=== PATIENT | female | born 2005 | race Hispanic/Latino ===

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

== ENCOUNTER 2025-03-21 11:20 | Emergency (ER) | payer MEDICAID, SELFPAY ==
[2025-03-21 11:20] VITALS: BP 148/100; PULSE 83; RESP 14; TEMP 36.2; O2SAT 98; BMI 48.4
--- NOTE | 2025-03-21 11:47 | EX.ED.UPPERE ---
HPI History of Present Illness Chief Complaint: Upper Extremity Injury Narrative Narrative: Chief complaint and HPI: Left shoulder pain. 19-year-old female with past medical history of depression and hypothyroidism presents for evaluation of left shoulder pain. Patient is left-handed. Patient states she was helping her sister move heavy boxes in which she developed pain in her left shoulder. She denies any significant trauma to the shoulder. She denies any numbness or tingling. Denies any neck pain, shortness of breath, chest pain, weakness. Review of systems: See HPI Medications: As listed on the chart Allergies: As listed on the chart PFSH: Per chart Vital signs: As listed on the chart. Reviewed. Physical exam: Gen: A&O x3, NAD Head: Normocephalic, atraumatic Eyes: No sclera icterus, conjunctiva clear, PERRL, EOMI ENT: moist mucous membranes Neck: Trachea midline, No JVD, Nontender full range of motion, CV: RRR, no murmurs, no chest wall TTP Resp: Lungs CTA BL, no w/r/c Musc: Limited active range of motion of the left shoulder secondary to pain-full passive range of motion, clavicle nontender to palpation, patient's tenderness to palpation is in the trapezius distribution and more along the posterior shoulder/upper scapular region-recreates the pain-no obvious signs of trauma, no deformity, no spinal TTP, no bobo step-offs, shoulder is not erythematous or warm, radial pulses +2 bilaterally, good capillary refill Skin: Warm, dry, intact Neuro: Alert, oriented, grossly intact, sensation intact Psych: Cooperative, appropriate mood and affect [facility] History Depression Hypothyroid Home Medications ?Medication ?Instructions ?Recorded ?Last Taken ?Type albuterol sulfate 90 mcg/actuation 1 - 2 puff inhalation Q4H PRN PRN 08/30/22 Unknown Rx aerosol inhaler (Ventolin HFA) Wheezing ##1 naproxen 500 mg tablet 500 mg PO BID #20 tabs 11/04/22 Unknown Rx hydrocodone-acetaminophen 5-325mg 1 tab PO Q6H PRN PRN Pain 3 days 11/07/22 Unknown Rx 5mg-325mg #10 TABLETS cyclobenzaprine 5 mg tablet 5 mg PO TID PRN muscle spasm 3 03/21/25 Unknown Rx days #9 tabs Allergy/AdvReac Type Severity Reaction Status Date / Time lanette padilla (From Allergy Other Verified 03/21/25 11:21 Vaseline) Social History (Updated 03/21/25 @ 12:09 by Sabina Perez) housing: house Smoking Status: Never smoker EXAM Physical Exam Const Vital Signs: 03/21/25 11:20 Temperature 97.1 F L Temperature Source Temporal Pulse Rate 83 Respiratory Rate 14 Blood Pressure 148/100 H Blood Pressure Mean 116 Pulse Ox 98 Oxygen Delivery Method Room Air MDM MDM MDM Narrative Medical decision making narrative: 19-year-old female with past medical history of depression and hypothyroidism presents for evaluation of left shoulder pain. See HPI and physical exam. Differential diagnosis includes but is not limited to myofascial spasm, shoulder strain, suspect less likely fracture or dislocation. IM Toradol and cyclobenzaprine ordered for symptoms. X-ray of the shoulder ordered. X-ray of the right shoulder was personally viewed interpreted by me, no fracture or dislocation. Radiology in agreement. Suspect patient's pain is secondary to myofascial spasm versus shoulder strain. Follow-up with primary care physician. Was given education on RICE therapy. She confirmed understand the plan. Patient stable to discharge home. Impression: 1. Right shoulder pain/strain Discharge Plan Triage Chief Complaint: Upper Extremity Injury ED Provider: Serge Stone Dx/Rx/DC Orders Clinical Impression: Muscle strain of right scapular region Instructions: ED Muscle Strain, Extremity, ED RICE Prescriptions: New cyclobenzaprine 5 mg tablet 5 mg PO TID PRN (Reason: muscle spasm) 3 Days Qty: 9 0RF Discontinued cyclobenzaprine [cyclobenzaprine] 10 mg tablet 10 mg PO TID PRN (Reason: Muscle Spasm) Qty: 20 0RF No Action albuterol sulfate [Ventolin HFA] 90 mcg/actuation HFA aerosol inhaler 1 - 2 puff inhalation Q4H PRN PRN (Reason: Wheezing) Qty: 1 0RF naproxen 500 mg tablet 500 mg PO BID Qty: 20 0RF hydrocodone-acetaminophen 5-325 mg tablet 1 tab PO Q6H PRN PRN (Reason: Pain) 3 Days Qty: 10 0RF Primary Care Provider: Phan Brewer Referrals: Sabina Ansari PORTABLE MACHINE SANDER, PORTABLE MACHINE SANDER-C [Non-Staff] - 3-5 Days Activity Restrictions/Additional Instructions: You received Toradol here in the emergency department, no ibuprofen for 8 hours. Afterwards okay for ibuprofen. Tylenol as needed. Recommend heating pad as well as Icy Hot. Gentle stretching. Muscle relaxers as needed for muscle spasms. Return back to the ED if symptoms change or worsen. Follow-up with your primary care physician. Print Language: Uzbek Disposition Disposition: Home, Self Care
--- NOTE | 2025-03-21 12:00 | RAD_ITS ---
PROCEDURE: SHOULDER MIN 2 VIEWS 03/21/2025 REASON FOR EXAM: PAIN TECHNIQUE: SHOULDER MIN 2 VIEWS COMPARISON: None FINDINGS: Bones: No fracture or suspicious osseous lesion Joints: Joint spaces well-preserved Soft tissues: Unremarkable Other: RAD/Shoulder min 2 Views IMPRESSION: No abnormal findings Reading Location: [id number]
[2025-03-21 13:00] VITALS: BP 148/100; PULSE 83; RESP 14; TEMP 36.2; O2SAT 98
== END 2025-03-21 13:01 | disposition home or self-care (01) ==
PROVIDERS: Emergency Provider Surgery; PCP Family Medicine; Visit Provider Surgery
DX: S46.911A Strain of unspecified muscle, fascia and tendon at shoulder and upper arm level, right arm, initial encounter (principal); X50.0XXA Overexertion from strenuous movement or load, initial encounter
CPT/HCPCS: 73030; 96372; 99282

== ENCOUNTER 2025-05-19 22:08 | Emergency (ER) | payer MEDICAID, SELFPAY ==
--- OUTSIDE RECORDS SUMMARY | 2024-12-24 10:33 | XMS RPT_ITS ---
Author Name Auto Generated Organization OHIP Care Team Providers Care Stacker Attendant Name Role Phone AMEE BREWER Primary Care Unavailable PODLOGARARUNA Attending Unavailable SELF Referring Unavailable AMEE BREWER Attending Unavailable AMEE BREWER Primary Care Unavailable AMEE BREWER Primary Care Unavailable AMEE BREWER Referring Unavailable AMEE BREWER Primary Care Unavailable AMEE BREWER Referring Unavailable PROBLEMS DATE TYPE CONDITION / CODE ATTENDING STATUS [facility] 05/22/2024 Active Bilateral impact ed cerumen / H61.23(ICD-10) PODLOGARARUNA Active [facility] 12/24/2024 Active Hidradenitis suppurativa / L73.2(ICD-10) PODLOGARARUNA Active [facility] 12/24/2024 Active Acute otitis ext marilee of right ear, unspecified type / H60.501(ICD-10) PODLOGARARUNA Active [facility] 05/23/2024 Active Elevated alkalin e phosphatase level / R74.8(ICD-10) NA Active [facility] 05/23/2024 Active Microcytic anemi a / D50.9(ICD-10) NA Active [facility] 05/23/2024 Active Thrombocytosis / D75.839(ICD-10) NA Active [facility] 06/05/2024 Active Elevated TSH / R79.89(ICD-10) NA Active [facility] 05/22/2024 Active Impacted cerumen of left ear / H61.22(ICD-10) AMEE BREWER Active [facility] 05/22/2024 Active Impacted cerumen of right ear / H61.21(ICD-10) AMEE BREWER Active [facility] 05/22/2024 Active Hypothyroidism, unspecified type / E03.9(ICD-10) AMEE BREWER Active [facility] 05/22/2024 Active Anxiety with dep ression / F41.8(ICD-10) AMEE BREWER Active [facility] 05/22/2024 Active Encounter for me dical examination to establish care / Z00.00(ICD-10) AMEE BREWER Active [facility] 05/22/2024 Active Morbid obesity w ith BMI of 45.0-49.9, adult (HCC) / E66.01(ICD-10) AMEE BREWER Active [facility] 05/22/2024 Active Morbid obesity w ith BMI of 45.0-49.9, adult (HCC) / Z68.42(ICD-10) SUSAN BREWERMELISA Active [facility] 05/22/2024 Active Encounter for immunization / Z23(ICD-10) ALVAANU AMEE Active [facility] PROCEDURES No Procedure Records Found RESULTS PROGRESS Observed: 12/24/2024 1:56 PM Status: COMPLETED Source: [facility] HNO ID: [id number] Author: ANITA CUMMINGS LPN Service: ? Author Type: LICENSED NURSE Type: Progress Notes Filed: 12/24/2024 13:57 Note Text: Dermatology referral, todays office note and [facility] at [phone] per patient request. Anita Cummings LPN PROGRESS Observed: 12/24/2024 11:13 AM Status: COMPLETED Source: [facility] HNO ID: [id number] Author: ANITA CUMMINGS LPN Service: ? Author Type: LICENSED NURSE Type: Progress Notes Filed: 12/24/2024 11:18 Note Text: Ambulatory Ear Lavage Pre-treatment: No pre-treatment Treatment: Both ears Equipment and Irrigation solution and Volume used: Single use syringe with single use irrigation tip Water Return flow appearance: Brown Yellow Patient tolerated procedure: yes Tympanic membrane assessment: Tympanic membrane assessed by LIP pre and post procedure PROGRESS Observed: 12/24/2024 10:40 AM Status: COMPLETED Source: [facility] HNO ID: [id number] Author: ARUNA GARCIA APRN.ABSORPTION AND ADSORPTION ENGINEER Service: ? Author Type: Nurse Practitioner Type: Progress Notes Filed: 12/24/2024 11:18 Note Text: 12/24/2024 Patient presents with: Ear Problem: Right ear pain x1 day, got water in last evening Acne: On bilateral breasts SUBJECTIVE: This is a 19 year old that is here today for Above Complaints. Last night started with right ear pain which started after her shower. Melissa is muffled. She reports she has a hx of swimmer's ear. Denies fevers, chills, or drainage. Acne under her breasts she thinks. Reports this has been going on for a while. Has not used anything OTC PAST MEDICAL HISTORY Diagnosis Date Anxiety with depression Cerumen impaction Chronic lower back pain Deliberate self-cutting childhood Elevated alkaline phosphatase level Geographic tongue Hypothyroidism Microcytic anemia Morbid obesity (HCC) Thrombocytosis Vitamin D deficiency ALLERGIES Patient has no known allergies. MEDICATIONS Current Outpatient Medications Medication Sig levothyroxine (SYNTHROID) 25 mcg tablet Take 1 tablet by mouth once daily. Take on empty stomach. For thyroid. cholecalciferol, Vitamin D3, (VITAMIN D3) 1,250 mcg (50,000 unit) cap capsule Take 1 capsule by mouth one time a week. sertraline (ZOLOFT) 50 mg tablet Take 1 tablet by mouth once daily. No current facility-administered medications for this visit. Medications and allergies reviewed by this provider. SOCIAL HISTORY Social History Tobacco Use Smoking status: Never Smokeless tobacco: Never Vaping Use Vaping status: Never Used Substance Use Topics Alcohol use: Never Drug use: Never REVIEW OF SYSTEMS All other reviewed and negative other than HPI. OBJECTIVE: BP 132/86 Pulse 86 Temp 36.2 ?C (97.2 ?F) Resp 18 Wt 121.3 kg (267 lb 6.4 oz) SpO2 98% BMI 47.56 kg/m? . Vital signs reviewed by this provider. APPEARANCE Well appearing, alert, in no acute distress, well-hydrated, well nourished. EARS Positive findings: cerumen bilaterally, amount Moderate. Right ear canal with mild erythema and tenderness with exam. After ear lavage still with moderate impaction SKIN lesions consistent with hidradenitis suppurativa - no surrounding erythema or active drainage Chlamydia Screening () Never done GC (Gonorrhea) Screening (-) due on 05/22/2025 Hepatitis C Screening due on 05/22/2025 HIV Screening due on 05/22/2025 Annual PCP Team Chronic Disease Visit due on 05/22/2025 DTaP,Tdap,Td Vaccine(8 - Td or Tdap) due on 04/27/2028 Hepatitis B Vaccine Completed HPV Vaccine Completed Influenza Vaccine Completed Meningococcal B Vaccine Completed Covid-19 Vaccine Completed ASSESSMENT/PLAN: 1. Bilateral impacted cerumen - ICD9: 380.4, ICD10: H61.23 (primary diagnosis) - recommend using Debrox OTC as instructed on packaging - AMBULATORY EAR LAVAGE/IRRIGATION - follow-up as needed 2. Hidradenitis suppurativa - ICD9: 705.83, ICD10: L73.2 - DOXYCYCLINE HYCLATE 100 MG CAPSULE - CONSULT TO DERMATOLOGY - METFORMIN ER 500 MG TABLET,EXTENDED RELEASE 24 HR 3. Acute otitis externa of right ear, unspecified type - ICD9: 380.10, ICD10: H60.501 - CIPRO HC 0.2 %-1 % EAR DROPS,SUSPENSION - follow-up if fails to improve Aruna Garcia, HYPERION ANALYST.ABSORPTION AND ADSORPTION ENGINEER Prescription instructions reviewed with patient as applicable. Patient advised if symptoms do not improve or if symptoms worsen sooner, to contact their primary care physician. Potential red flag symptoms discussed with the patient. Reviewed appropriate action plan to take if red flag symptoms occur. Patient agreeable to treatment plan. Medical Decision Making: Problems: Low: Acute, uncomplicated illness or injury Moderate: New problem with uncertain prognosis Risk: Moderate: Drug management Medical Decision Making Level: 4 - Moderate CNOV Observed: 12/24/2024 10:40 AM Status: COMPLETED Source: [facility] ANGELICA ONOFRE ([id number]) 3 F Date Time Provider Department 12/24/24 10:40 AM ARUNA GARCIA During your visit today, we recorded the following information about you: Temperature Pulse Respiration Blood pressure 97.2 degrees 86/minute 18/minute 132/86 Weight 121.3 kg Aruna Garcia APRN.CNP 12/24/2024 11:18 AM Signed 12/24/2024 Patient presents with: Ear Problem: Right ear pain x1 day, got water in last evening Acne: On bilateral breasts SUBJECTIVE: This is a 19 year old that is here today for Above Complaints. Last night started with right ear pain which started after her shower. Melissa is muffled. She reports she has a hx of swimmer's ear. Denies fevers, chills, or drainage. Acne under her breasts she thinks. Reports this has been going on for a while. Has not used anything OTC PAST MEDICAL HISTORY Diagnosis Date Anxiety with depression Cerumen impaction Chronic lower back pain Deliberate self-cutting childhood Elevated alkaline phosphatase level Geographic tongue Hypothyroidism Microcytic anemia Morbid obesity (HCC) Thrombocytosis Vitamin D deficiency ALLERGIES Patient has no known allergies. MEDICATIONS Current Outpatient Medications Medication Sig levothyroxine (SYNTHROID) 25 mcg tablet Take 1 tablet by mouth once daily. Take on empty stomach. For thyroid. cholecalciferol, Vitamin D3, (VITAMIN D3) 1,250 mcg (50,000 unit) cap capsule Take 1 capsule by mouth one time a week. sertraline (ZOLOFT) 50 mg tablet Take 1 tablet by mouth once daily. No current facility-administered medications for this visit. Medications and allergies reviewed by this provider. SOCIAL HISTORY Social History Tobacco Use Smoking status: Never Smokeless tobacco: Never Vaping Use Vaping status: Never Used Substance Use Topics Alcohol use: Never Drug use: Never REVIEW OF SYSTEMS All other reviewed and negative other than HPI. OBJECTIVE: BP 132/86 Pulse 86 Temp 36.2 ?C (97.2 ?F) Resp 18 Wt 121.3 kg (267 lb 6.4 oz) SpO2 98% BMI 47.56 kg/m? . Vital signs reviewed by this provider. APPEARANCE Well appearing, alert, in no acute distress, well-hydrated, well nourished. EARS Positive findings: cerumen bilaterally, amount Moderate. Right ear canal with mild erythema and tenderness with exam. After ear lavage still with moderate impaction SKIN lesions consistent with hidradenitis suppurativa - no surrounding erythema or active drainage Chlamydia Screening (18-24) Never done GC (Gonorrhea) Screening (18-24) due on 05/22/2025 Hepatitis C Screening due on 05/22/2025 HIV Screening due on 05/22/2025 Annual PCP Team Chronic Disease Visit due on 05/22/2025 DTaP,Tdap,Td Vaccine(8 - Td or Tdap) due on 04/27/2028 Hepatitis B Vaccine Completed HPV Vaccine Completed Influenza Vaccine Completed Meningococcal B Vaccine Completed Covid-19 Vaccine Completed ASSESSMENT/PLAN: 1. Bilateral impacted cerumen - ICD9: 380.4, ICD10: H61.23 (primary diagnosis) - recommend using Debrox OTC as instructed on packaging - AMBULATORY EAR LAVAGE/IRRIGATION - follow-up as needed 2. Hidradenitis suppurativa - ICD9: 705.83, ICD10: L73.2 - DOXYCYCLINE HYCLATE 100 MG CAPSULE - CONSULT TO DERMATOLOGY - METFORMIN ER 500 MG TABLET,EXTENDED RELEASE 24 HR 3. Acute otitis externa of right ear, unspecified type - ICD9: 380.10, ICD10: H60.501 - CIPRO HC 0.2 %-1 % EAR DROPS,SUSPENSION - follow-up if fails to improve Aruna PatellogAPRN. corazonABSORPTION AND ADSORPTION ENGINEER Prescription instructions reviewed with patient as applicable. Patient advised if symptoms do not improve or if symptoms worsen sooner, to contact their primary care physician. Potential red flag symptoms discussed with the patient. Reviewed appropriate action plan to take if red flag symptoms occur. Patient agreeable to treatment plan. Medical Decision Making: Problems: Low: Acute, uncomplicated illness or injury Moderate: New problem with uncertain prognosis Risk: Moderate: Drug management Medical Decision Making Level: 4 - Moderate Aruna Garcia APRN.CNP 12/24/2024 11:10 AM Signed Recommend using Debrox over the counter- use as instructed on packaging Anita Cummings LPN 12/24/2024 11:18 AM Signed Ambulatory Ear Lavage Pre-treatment: No pre-treatment Treatment: Both ears Equipment and Irrigation solution and Volume used: Single use syringe with single use irrigation tip Water Return flow appearance: Brown Yellow Patient tolerated procedure: yes Tympanic membrane assessment: Tympanic membrane assessed by LIP pre and post procedure Anita Cummings LPN 12/24/2024 1:57 PM Signed Dermatology referral, todays office note and registration faxed to [facility] at [phone] per patient request. Anita Cummings LPN Allergies As of Date: 12/24/2024 (No Known Allergies) Date Reviewed: 12/24/2024 Reviewed by: PodlogAruna chandra APRN.ABSORPTION AND ADSORPTION ENGINEER - Fully Assessed Reason for Visit: Ear Problem [38] Cmt: Right ear pain x1 day, got water in last evening Acne [922] Cmt: On bilateral breasts Primary Visit Diagnosis:Bilateral impacted cerumen [H61.23] Other Visit Diagnoses:Hidradenitis suppurativa [L73.2] Acute otitis externa of right ear, unspecified type [H60.501] Order(s):AMBULATORY EAR LAVAGE/IRRIGATION [68753WAP] Order #: [id number] doxycycline hyclate (VIBRAMYCIN) 100 mg capsuleTake 1 capsule by mouth once daily.Disp: 90 capsuleRfl: 0 CONSULT TO DERMATOLOGY [9006] Order #: [id number]: 1 FUTURE metFORMIN ER (GLUCOPHAGE XR) 500 mg 24 hr tabletTake 2 tablets by mouth daily with breakfast.Disp: 180 tabletRfl: 1 ciprofloxacin-hydrocortisone (CIPRO HC) otic suspensionUse 3 drops in the right ear two times a day for 7 days.Disp: 3 mLRfl: 0 Prescriptions as of 12/24/2024 - doxycycline hyclate (VIBRAMYCIN) 100 mg capsule Take 1 capsule by mouth once daily. - metFORMIN ER (GLUCOPHAGE XR) 500 mg 24 hr tablet Take 2 tablets by mouth daily with breakfast. - ciprofloxacin-hydrocortisone (CIPRO HC) otic suspension Use 3 drops in the right ear two times a day for 7 days. - levothyroxine (SYNTHROID) 25 mcg tablet Take 1 tablet by mouth once daily. Take on empty stomach. For thyroid. - cholecalciferol, Vitamin D3, (VITAMIN D3) 1,250 mcg (50,000 unit) cap capsule Take 1 capsule by mouth one time a week. - sertraline (ZOLOFT) 50 mg tablet Take 1 tablet by mouth once daily. Problem List As Of Date 12/24/2024 Noted Resolved Anxiety with depression [F41.8] Hypothyroidism [E03.9] Cerumen impaction [H61.20] Vitamin D deficiency [E55.9] Thrombocytosis [D75.839] Microcytic anemia [D50.9] Elevated alkaline phosphatase level [R74.8] Other instructions from your clinician: Recommend using Debrox over the counter- use as instructed on packaging Prescriptions ordered this encounter Disp Refills Start End DOXYCYCLINE HYCLATE 100 MG CAPSULE 90 c* 0 12/24/2024 03/24/2025 Route: ORAL Sig: Take 1 capsule by mouth once daily. METFORMIN ER 500 MG TABLET,EXTENDED * 180 * 1 12/24/2024 Route: ORAL Sig: Take 2 tablets by mouth daily with breakfast. CIPRO HC 0.2 %-1 % EAR DROPS,SUSPENS* 3 mL 0 12/24/2024 12/31/2024 Route: RIGHT EAR Sig: Use 3 drops in the right ear two times a day for 7 days. Letter Text Encounter Status:Closed by ARUNA GARCIA on 12/24/24 OLIVIA Observed: 06/26/2024 12:00 AM Status: COMPLETED Source: [facility] Letter Text CNPN Observed: 06/06/2024 12:00 AM Status: COMPLETED Source: [facility] Telephone (FAMPWS) ANGELICA ONOFRE ([id number]) 3 F Date Time Provider Department 06/06/24 AMEE BREWERWS During your visit today, we recorded the following information about you: Amee Brewer MD 06/06/2024 10:47 AM Signed Alk phos is improving. No further workup on this at this time. Worsening anemia noted with iron deficiency. Ferritin level was cancelled due to grossly hemolyzed sample so I do not know what her iron stores are like today. Platelet count is also significantly elevated still which is likely caused by the iron deficiency. Awaiting FOBT kit to rule out GI bleed. Will start patient on daily iron supplement and recheck levels in 4-6 weeks. Please let me know if she has developed any bleeding symptoms including heavy periods, blood in stool, blood in urine, etc. TSH remains high with high peroxidase antibody, but with normal Free T4 and T3. This is a sign of subclinical hypothyroidism. With TSH above 10, I would recommend starting her on Synthroid daily to lower this to normal and recheck level in 6-8 weeks. Lucille West RN 06/06/2024 11:04 AM Signed Called and left a voicemail for the Patient and her mother to call back and ask for a nurse to receive the providers message. ANTHONY Norwood Laurie Lynn, LPN 06/06/2024 11:42 AM Signed Mother called in and results given. 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 They will [place] in and get this. Nolvia Yin LPN Allergies As of Date: 06/06/2024 (No Known Allergies) Date Reviewed: 04/02/2024 Reviewed by: Tayla Hunt MA - Fully Assessed Reason for Visit: Results [95] Primary Visit Diagnosis:Iron deficiency anemia, unspecified iron deficiency anemia type [D50.9] Other Visit Diagnosis:Subclinical hypothyroidism [E03.8] Order(s):ferrous sulfate 325 mg (65 mg iron) tabletTake 1 tablet by mouth once daily.Disp: 90 tabletRfl: 0 COMPLETE BLOOD COUNT AND DIFFERENTIAL [SQCBCDIF] Order #: [id number] FUTURE IRON AND TIBC [SQIRON] Order #: [id number] FUTURE FERRITIN [SQFERR] Order #: [id number] FUTURE levothyroxine (SYNTHROID) 25 mcg tabletTake 1 tablet by mouth once daily. Take on empty stomach. For thyroid.Disp: 90 tabletRfl: 0 THYROID STIMULATING HORMONE [SQTSH] Order #: [id number] FUTURE Prescriptions as of 06/06/2024 - ferrous sulfate 325 mg (65 mg iron) tablet Take 1 tablet by mouth once daily. - levothyroxine (SYNTHROID) 25 mcg tablet Take 1 tablet by mouth once daily. Take on empty stomach. For thyroid. - cholecalciferol, Vitamin D3, (VITAMIN D3) 1,250 mcg (50,000 unit) cap capsule Take 1 capsule by mouth one time a week. - sertraline (ZOLOFT) 50 mg tablet Take 1 tablet by mouth once daily. Problem List As Of Date 06/06/2024 Noted Resolved Anxiety with depression [F41.8] Hypothyroidism [E03.9] Cerumen impaction [H61.20] Vitamin D deficiency [E55.9] Thrombocytosis [D75.839] Microcytic anemia [D50.9] Elevated alkaline phosphatase level [R74.8] Prescriptions ordered this encounter Disp Refills Start End FERROUS SULFATE 325 MG (65 MG IRON) * 90 t* 0 06/06/2024 09/04/2024 Route: ORAL Sig: Take 1 tablet by mouth once daily. LEVOTHYROXINE 25 MCG TABLET 90 t* 0 06/06/2024 09/04/2024 Route: ORAL Sig: Take 1 tablet by mouth once daily. Take on empty stomach. For thyroid. Encounter Status:Closed by NOLVIA YIN on 06/06/24 IRON+TIBC PNL SERPL Collected: 06/05/20 10:08 AM Status: F Source: [facility] Order Comment: Specimen Type : BLOOD SPECIMEN Ordering Facility: [facility] Address: [address] [place] [address] TYPE CODE TESTS RESULT OUT OF RANGE REFERENCE UNITS LAB 2498-4(LOINC) Iron SerPl-mCnc 25 Low 41-186 ug/dL LAB 2500-7(LOINC) TIBC SerPl-mCnc 348 232-386 ug/dL LAB 40768-3(LOINC) Iron/TIBC SerPl-sRto 7.2 Low 15.0-57.0 % Performed By: #### 99892-6, 3016-3, 3053-6, 3024-7 #### [facility] CLIA [id number] [address] [place], [place] [address] [place] [address] [place] T4 FREE SERPL-MCNC Collected: 10:08 AM Status: F Source: [facility] Order Comment: Specimen Type : BLOOD SPECIMEN Ordering Facility: [facility] Address: [address] [place] [address] TYPE CODE TESTS RESULT OUT OF RANGE REFERENCE UNITS LAB 3024-7(LOINC) T4 Free SerPl-mCnc 1.2 0.9-1.7 ng/dL Performed By: #### 97685-6, 3016-3, 3053-6, 3024-7 #### [facility] CLIA [id number] [address] [place] [address] OF [facility] T3 SERPL-MCNC Collected: 4 10:08 AM Status: F Source: [facility] Order Comment: Specimen Type : BLOOD SPECIMEN Ordering Facility: [facility] Address: [address] [place] [address] TYPE CODE TESTS RESULT OUT OF RANGE REFERENCE UNITS LAB 3053-6(LOINC) T3 SerPl-mCnc 144 79-165 ng/d L Performed By: #### 16316-3, 3016-3, 3053-6, 3024-7 #### [facility] CLIA [id number] [address] [place], [place] [id number] [place] [facility] TSH SERPL-ACNC Collected: 4 10:08 AM Status: F Source: [facility] Comment: Specimen Type : BLOOD SPECIMEN Ordering Facility: [facility] Address: [address] [place] [address] TYPE CODE TESTS RESULT OUT OF RANGE REFERENCE UNITS LAB 3016-3(LOINC) TSH SerPl-aCnc 10.100 High 0.510-4.300 mIU/L Result Comment: If the patie nt is , TSH reference range varies by gestational period: First Trimester (weeks 9-12): 0.180-2.990 mIU/L Second Trimester: 0.110-3.980 mIU/L Third Trimester: 0.480-4.710 mIU/L Edgar Cardenas, et al. A Practical Approach for the Verifications and Determination of Site- and Trimester-Specific Reference Intervals for Thyroid Function tests in . Thyroid, 2019:29:3:412-420. Martin E, et al. 2017 Guidelines of the [place] Thyroid Association for the Diagnosis and Management of Thyroid Disease during and the . Thyroid, 2017:27:3:315-389. Reference ranges were not locally established for this patient's age group. The normal values are based on the following source: Samara W, [place] V. Reference Ranges for Adults and Children: Pre-analytical Considerations. [facility] Performed By: #### 17712-3, 3016-3, 3053-6, 3024-7 #### [facility] CLIA [id number] [address] [place] [address] [place] THYROID PEROXIDASE ANTIBODY Collected: 06/05/2024 10: 08 AM Status: F Source: [facility] Order Comment: Specimen Type : BLOOD SPECIMEN Ordering Facility: [facility] Address: [address] [place] [address] TYPE CODE TESTS RESULT OUT OF RANGE REFERENCE UNITS LAB 8099-4(LOINC) Thyroperoxidase Ab [facility] 1718.5 High <5.6 IU/mL Result Comment: Thyroid Radha xidase Antibody test is used as an aid in diagnosis of autoimmune thyroid disease. Clinical correlation is required. Performed By: #### MICRO ### # [facility] CLIA [id number] [address] [place] [address] [place] ALKALINE PHOSPHATASE ISOENZY MES (P) Collected: 06/05/2024 10:08 AM Status: F Source: [facility] Order Comment: Specimen Type : BLOOD SPECIMEN Ordering Facility: [facility] Address: [address] [place] [address] TYPE CODE TESTS RESULT OUT OF RANGE REFERENCE UNITS LAB [id number] ALK PHOS BONE % 29.5 10.7-68.3 % LAB [id number] BONE FRACTION 36.9 12.9-52.6 U/L LAB [id number] ALK PHOS LIVER % 63.4 26.0-86.2 % LAB [id number] LIVER FRACTION 79.3 High 16.0-69.3 U/L LAB [id number] ALK PHOS INTESTINE % 7.0 0.0-24.2 % LAB [id number] INTESTINE FRACTION 8.8 0.0-16.3 U/L Performed By: #### ALKISOP # ### [facility] CLIA [id number] [address] [place] [address] [place] CBC W ORDERED MANUAL DIFF BLD Collected: 06/05/2024 10:08 AM Status: F Source: [facility] Order Comment: Specimen Type : BLOOD SPECIMEN Ordering Facility: [facility] Address: [place] [address] TYPE CODE TESTS RESULT OUT OF RANGE REFERENCE UNITS LAB 6690-2([facility]) WBC # Bld Auto 11.79 High 3.70-11.00 k/uL LAB 789-8([facility]) RBC # Bld Auto 4.83 3.90-5.20 m/ uL LAB 718-7([facility]) Hgb Bld-mCnc 10.3 Low 11.5-15.5 g/dL LAB 4544-3([facility]) Hct VFr Bld Auto 35.3 Low 36.0-46.0 % LAB 787-2([facility]) MCV RBC Auto 73.1 Low 80.0-100.0 fL LAB 785-6([facility]) MCH RBC Qn Auto 21.3 Low 26.0-34.0 p g LAB 786-4([facility]) MCHC RBC Auto-mCnc 29.2 Low 30.5-36.0 g/dL LAB 50101-0([facility]) RDW RBC-Rto 15.4 High 11.5-15.0 % LAB 777-3([facility]) Platelet # Bld Auto 630 High 150-400 k/uL LAB 07422-1([facility]) PMV Bld Auto 10.2 9.0-12.7 fL LAB 770-8([facility]) Neutrophils/leuk NFr Bld Auto 63.2 % LAB 751-8([facility]) Neutrophils # Bld Auto 7.46 1.45-7.50 k/uL LAB 736-9([facility]) Lymphocytes/leuk NFr Bld Auto 26.8 % LAB 731-0([facility]) Lymphocytes # Bld Auto 3.16 1.00-4.00 k/uL LAB 5905-5([facility]) Monocytes/leuk NFr Bld Auto 7.4 % LAB 742-7([facility]) Monocytes # Bld Auto 0.87 High <0.87 k/uL LAB 713-8([facility]) Eosinophil/leuk NFr Bld Auto 1.4 % LAB 711-2(LOINC) Eosinophil # Bld Auto 0.16 <0.46 k/uL LAB 706-2(LOINC) Basophils/leuk NFr Bld Auto 0.8 % LAB 704-7(LOINC) Basophils # Bld Auto 0.09 <0.11 k/uL LAB 10750-4(LOINC) Imm Granulocytes/nader k NFr Bld Auto 0.4 % LAB 10278-5(LOINC) Imm Granulocytes # Bld Auto 0.05 <0.10 k/uL LAB 90114-9(LOINC) nRBC/100 WBC Bld-Rto 0.0 /100 WBC LAB 771-6([facility]) nRBC # Bld Auto <0.01 <0.01 k/u L LAB 85575-8([facility]) Differential method Bld Auto Performed By: #### 33920-6 # ### [facility] CLIA [id number] [address] [place] [address] [place] ALP SERPL-CCNC Collected: 10:08 AM Status: F Source: [facility] Order Comment: Specimen Type : BLOOD SPECIMEN Ordering Facility: [facility] Address: [address] [place] [address] TYPE CODE TESTS RESULT OUT OF RANGE REFERENCE UNITS LAB 6768-6([facility]) ALP SerPl-cCnc 125 High 34-123 U/L Result Comment: Results may be falsely decreased due to interference from hemolysis. Suggest reorder as clinically indicated. Performed By: #### 94399-8, 6768-6, 2324-2 #### [facility] CLIA [id number] [address] [place] [address] [place] COMP METAB 2000 PNL SERPL Collected: 10:08 AM Status: F Source: [facility] Order Comment: Specimen Type : BLOOD SPECIMEN Ordering Facility: [facility] Address: [address] [place] [address] TYPE CODE TESTS RESULT OUT OF RANGE REFERENCE UNITS LAB 2885-2(LOINC) Prot SerPl-mCnc 7.3 6.3-8.0 g/dL LAB 1751-7(LOINC) Albumin SerPl-mCnc 3.7 Low 3.9-4.9 g/dL LAB 24437-7(LOINC) Calcium SerPl-mCnc 9.1 8.5-10.2 mg/dL LAB 1975-2(LOINC) Bilirub SerPl-mCnc 0.4 0.2-1.3 mg/dL LAB 6768-6(LOINC) ALP SerPl-cCnc 125 High 34-123 U/L Result Comment: Results may be falsely decreased due to interference from hemolysis. Suggest reorder as clinically indicated. LAB 1920-8(LOINC) AST SerPl-cCnc 35 13-35 U/L Result Comment: Results may be falsely increased due to interference from hemolysis. Suggest reorder as clinically indicated. LAB 1742-6(LOINC) ALT SerPl-cCnc 8 7-38 U/L Result Comment: Results may be falsely increased due to interference from hemolysis. Suggest reorder as clinically indicated. LAB 2345-7(LOINC) Glucose SerPl-mCnc 96 74-99 mg/dL Result Comment: The [place] Diabetes Association (ADA) provides guidance for cutoff values for fasting glucose and random glucose. The ADA defines fasting as no caloric intake for at least 8 hours. Fasting plasma glucose results between 100 to 125 mg/dL indicate increased risk for diabetes (prediabetes). Fasting plasma glucose results greater than or equal to 126 mg/dL meet the criteria for diagnosis of diabetes. In the absence of unequivocal hyperglycemia, results should be confirmed by repeat testing. In a patient with classic symptoms of hyperglycemia or hyperglycemic crisis, random plasma glucose results greater than or equal to 200 mg/dL meet the criteria for diagnosis of diabetes. Reference: Standards of Medical Care in Diabetes 2016, [place] Diabetes Association. Diabetes Care. 2016.39(Suppl 1). LAB 3094-0(LOINC) BUN SerPl-mCnc 9 7-21 mg/ dL LAB 2160-0(LOINC) Creat SerPl-mCnc 0.64 0.58-0.96 mg/dL LAB 2951-2(LOINC) Sodium SerPl-sCnc 137 136-144 mmol/L LAB 2823-3(LOINC) Potassium SerPl-sCnc Result Comment: Unable to as say due to interference from hemolysis. Suggest reorder as clinically indicated. LAB 2075-0(LOINC) Chloride SerPl-sCnc 104 98-107 mmol/L LAB 2028-9(LOINC) CO2 SerPl-sCnc 22 22-30 mmo l/L LAB 02074-4(LOINC) Anion Gap SerPl-sCnc 11 8-15 mmol/L LAB 99089-9(LOINC) Creatinine + eGFR Pnl SerPlBld 131 >=60 mL/min/1 .73m??? Result Comment: Estimated Gl omerular Filtration Rate (eGFR) is calculated using the 2020 CKD-EPI creatinine equation. This equation utilizes serum creatinine, sex, and age as parameters. The creatinine assay has traceable calibration to isotope dilution-mass spectrometry. Refer to KDIGO guidelines for clinical interpretation. In patients with unstable renal function, e.g. those with acute kidney injury, the eGFR may not accurately reflect actual GFR. Performed By: #### 83833-8, 6768-6, 2324-2 #### [facility] CLIA [id number] [address] [place] [address] [place] GGT SERPL-CCNC Collected: 10:08 AM Status: F Source: [facility] Order Comment: Specimen Type : BLOOD SPECIMEN Ordering Facility: [facility] Address: [address] [place] [address] TYPE CODE TESTS RESULT OUT OF RANGE REFERENCE UNITS LAB 2324-2(INC) GGT SerPl-cCnc <3 Low 6-46 U/L Result Comment: Results may be falsely decreased due to interference from hemolysis. Suggest reorder as clinically indicated. Performed By: #### 72904-5, 6768-6, 2324-2 #### [facility] CLIA [id number] [address] [place] [address] [place] CNPN Observed: 05/23/2024 12:00 AM Status: COMPLETED Source: [facility] Telephone (FAMPWS) ANGELICA ONOFRE LISETH Farah ([id number]) 3 F Date Time Provider Department 05/23/24 AMEE BREWER During your visit today, we recorded the following information about you: Amee Brewer MD 05/23/2024 8:34 AM Signed Blood work shows mild microcytic anemia with high platelet count over 700. Recommend repeat blood work this week with peripheral smear for this along with iron studies and FOBT to rule out GI bleed. Vitamin D level severely low. Recommend 50,000 units of vitamin D weekly x 12 weeks and recheck in 3 months. TSH is high which is a possible sign of underactive thyroid. Recommend repeating labs in 2-3 weeks to confirm this. Cholesterol Is high for her age. Recommend low cholesterol diet and exercise. Alk phos mildly elevated with normal LFTs. Will recheck with thyroid testing in 2-3 weeks. Negative for diabetes. Vitamin B12 level is normal. Valerie Hwang LPN 05/23/2024 11:21 AM Signed left message for patient to call office back and speak with triage nurse. CIRILO Boswell Lori, LPN 05/25/2024 3:40 PM Signed Phoned patient and she identified herself and gave permission to discuss her medical information with her mom, Janna Marquez. Reviewed results and recommendations with patient's mother. She voiced understanding and will have patient here Tuesday to complete labs. Josep Royal LPN Allergies As of Date: 05/23/2024 (No Known Allergies) Date Reviewed: 04/02/2024 Reviewed by: Tayla Hunt [place] - Fully Assessed Reason for Visit: Results [95] Primary Visit Diagnosis:Vitamin D deficiency [E55.9] Other Visit Diagnoses:Thrombocytosis [D75.839] Microcytic anemia [D50.9] Elevated alkaline phosphatase level [R74.8] Elevated TSH [R79.89] Order(s):PATHOLOGIST INTERPRETATION WITH CBC AND DIFF [SQSTREV] Order #: [id number] FUTURE IRON AND TIBC [SQIRON] Order #: [id number] FUTURE FERRITIN [SQFERR] Order #: [id number] FUTURE THYROID STIMULATING HORMONE [SQTSH] Order #: [id number] FUTURE T4 FREE/FREE THYROXINE [SQFT4] Order #: [id number] FUTURE T3 [SQT3] Order #: [id number] FUTURE THYROID PEROXIDASE ANTIBODY [SQMICRO] Order #: [id number] FUTURE COMPREHENSIVE METABOLIC PANEL [SQCMP] Order #: [id number] FUTURE ALK PHOS ISOENZYM BL [SQALKISO] Order #: [id number] FUTURE GGT [SQGGT] Order #: [id number] FUTURE cholecalciferol, Vitamin D3, (VITAMIN D3) 1,250 mcg (50,000 unit) cap capsuleTake 1 capsule by mouth one time a week.Disp: 12 capsuleRfl: 0 VITAMIN D 25 HYDROXY [SQVITD] Order #: [id number] FUTURE IMMUNOCHEMICAL FECAL OCCULT BLOOD TEST [SQIFOBT] Order #: [id number]. #:[id number] Prescriptions as of 05/25/2024 - cholecalciferol, Vitamin D3, (VITAMIN D3) 1,250 mcg (50,000 unit) cap capsule Take 1 capsule by mouth one time a week. - sertraline (ZOLOFT) 50 mg tablet Take 1 tablet by mouth once daily. - nystatin (MYCOSTATIN) 100,000 unit/mL suspension Take 5 mL by mouth four times daily for 7 days. 1tsp swish in mouth for several minutes, then swallow (or expectorate) 4 times daily until gone. Problem List As Of Date 05/23/2024 Noted Resolved Anxiety with depression [F41.8] Hypothyroidism [E03.9] Cerumen impaction [H61.20] Vitamin D deficiency [E55.9] Thrombocytosis [D75.839] Microcytic anemia [D50.9] Elevated alkaline phosphatase level [R74.8] Prescriptions ordered this encounter Disp Refills Start End CHOLECALCIFEROL (VITAMIN D3) 1,250 M* 12 c* 0 05/23/2024 08/21/2024 Route: ORAL Sig: Take 1 capsule by mouth one time a week. Encounter Status:Closed by JOSEP ROYAL on 05/25/24 DEPRECATED HGB A1C BLD Collected: 05/22 2:12 PM Status: F Source: [facility] Order Comment: Specimen Type : BLOOD SPECIMEN Ordering Facility: [facility] Address: [address] [place] [address] TYPE CODE TESTS RESULT OUT OF RANGE REFERENCE UNITS LAB 4548-4(LOINC) HbA1c MFr Bld 5.1 4.3-5.6 % Result Comment: [place] Mariely betes Association guidelines indicate that patients with HgbA1c in the range 5.7-6.4% are at increased risk for development of diabetes, and intervention by lifestyle modification may be beneficial. HgbA1c greater or equal to 6.5% is considered diagnostic of diabetes. LAB 28539-5([facility]) Est. average glucose Bld gHb Est-mCnc 100 mg/dL Result Comment: eAG: (Estima spencer average glucose) is a calculated value from HgbA1c and is cash posting representative of the average blood glucose level in the last 2-3 month period. Performed By: #### 41696-1 # ### [facility] CLIA [id number] [address] [place] [address] [place] COMP METAB 2000 PNL SERPL Collected: 2:12 PM Status: F Source: [facility] Order Comment: Specimen Type : BLOOD SPECIMEN Ordering Facility: [facility] Address: [address] [place] [address] TYPE CODE TESTS RESULT OUT OF RANGE REFERENCE UNITS LAB 2885-2(LOINC) Prot SerPl-mCnc 8.2 High 6.3-8.0 g/dL LAB 1751-7(LOINC) Albumin SerPl-mCnc 3.8 Low 3.9-4.9 g/dL LAB 42482-9(LOINC) Calcium SerPl-mCnc 9.3 8.5-10.2 mg/dL LAB 1975-2(LOINC) Bilirub SerPl-mCnc 0.3 0.2-1.3 mg/dL LAB 6768-6(LOINC) ALP SerPl-cCnc 143 High 34-123 U/L LAB 1920-8(LOINC) AST SerPl-cCnc 10 Low 13-35 U/L LAB 1742-6(LOINC) ALT SerPl-cCnc 11 7-38 U/L LAB 2345-7(LOINC) Glucose SerPl-mCnc 95 74-99 mg/dL Result Comment: The [place] Diabetes Association (ADA) provides guidance for cutoff values for fasting glucose and random glucose. The ADA defines fasting as no caloric intake for at least 8 hours. Fasting plasma glucose results between 100 to 125 mg/dL indicate increased risk for diabetes (prediabetes). Fasting plasma glucose results greater than or equal to 126 mg/dL meet the criteria for diagnosis of diabetes. In the absence of unequivocal hyperglycemia, results should be confirmed by repeat testing. In a patient with classic symptoms of hyperglycemia or hyperglycemic crisis, random plasma glucose results greater than or equal to 200 mg/dL meet the criteria for diagnosis of diabetes. Reference: Standards of Medical Care in Diabetes 2016, [place] Diabetes Association. Diabetes Care. 2016.39(Suppl 1). LAB 3094-0(LOINC) BUN SerPl-mCnc 11 7-21 mg/ dL LAB 2160-0(LOINC) Creat SerPl-mCnc 0.69 0.58-0.96 mg/dL LAB 2951-2(LOINC) Sodium SerPl-sCnc 137 136-144 mmol/L LAB 2823-3(LOINC) Potassium SerPl-sCnc 4.3 3.7-5.1 mmol/L LAB 2075-0(LOINC) Chloride SerPl-sCnc 104 98-107 mmol/L LAB 2028-9(LOINC) CO2 SerPl-sCnc 22 22-30 mmo l/L LAB 56357-6(LOINC) Anion Gap SerPl-sCnc 11 8-15 mmol/L LAB 65971-4(LOINC) Creatinine + eGFR Pnl SerPlBld 128 >=60 mL/min/1 .73m??? Result Comment: Estimated Gl omerular Filtration Rate (eGFR) is calculated using the 2020 CKD-EPI creatinine equation. This equation utilizes serum creatinine, sex, and age as parameters. The creatinine assay has traceable calibration to isotope dilution-mass spectrometry. Refer to KDIGO guidelines for clinical interpretation. In patients with unstable renal function, e.g. those with acute kidney injury, the eGFR may not accurately reflect actual GFR. Performed By: #### 40296-4, 2132-9, 3016-3, LIPNF #### [facility] CLIA [id number] [address] [place] [address] [place] LIPID PANEL, NONFASTING Collected: 05/22/2024 2:12 PM Status: F Source: [facility] Order Comment: Specimen Type : BLOOD SPECIMEN Ordering Facility: [facility] Address: [address] [place] [address] TYPE CODE TESTS RESULT OUT OF RANGE REFERENCE UNITS LAB CHOLNF TOTAL CHOLESTEROL NF 177 High <170 mg/dL Result Comment: <170 mg/dL, Acceptable 170-199 mg/dL, Borderline high >199 mg/dL, High LAB TRIGNF TRIGLYCERIDES, NF 80 <90 mg/dL Result Comment: <90 mg/dL, A cceptable 90-129 mg/dL, Borderline high >129 mg/dL, High LAB HDLNF HDL CHOLESTEROL, NF 37 Low >45 mg/dL Result Comment: >45 mg/dL, A cceptable 40-45 mg/dL, Borderline <40 mg/dL, Low LAB LDLNF LDL CHOLESTEROL, NF 124 High <110 mg/dL Result Comment: <110 mg/dL, Acceptable 110-129 mg/dL, Borderline high >129 mg/dL, High LAB NOHDLN NON HDL CHOL, NF 140 High <120 mg/dL Result Comment: <120 mg/dL, Acceptable 120-144 mg/dL, Borderline high >144 mg/dL, High LAB VLDLNF VLDL CHOLESTEROL, NF 16 <18 mg/dL LAB TCHDLN T CHOL/HDL RATIO NF 4.78 High <3.76 mg/dL LAB LDLHDN LDL/HDL RATIO, NF 3.35 High <2.42 mg/dL Result Comment: Reference: 1. Expert Panel on Integrated Guidelines for Cardiovascular Health and Risk Reduction in Children and Adolescents: National Heart, Lung and Blood [place]. Pediatrics. 2011: 128(Suppl 5):G151-049. Performed By: #### 98136-5, 2132-9, 3016-3, LIPNF #### [facility] CLIA [id number] [address] [place] [address] [place] VIT B12 SERPL-MCNC Collected: 05/22/2024 2:12 PM Sta tus: F Source: [facility] Order Comment: Specimen Type : BLOOD SPECIMEN Ordering Facility: [facility] Address: [address] [place] [address] TYPE CODE TESTS RESULT OUT OF RANGE REFERENCE UNITS LAB 2132-9(LOINC) Vit B12 SerPl-mCnc 090 858-9315 pg/mL Performed By: #### 22829-8, 2132-9, 3016-3, LIPNF #### [facility] CLIA [id number] [address] [place] [address] [place] TSH SERPL-ACNC Collected: 4 2:12 PM Status: F Source: [facility] Order Comment: Specimen Type : BLOOD SPECIMEN Ordering Facility: [facility] Address: [address] [place] [address] TYPE CODE TESTS RESULT OUT OF RANGE REFERENCE UNITS LAB 3016-3(LOINC) TSH SerPl-aCnc 8.800 High 0.510-4.300 mIU/L Result Comment: If the patie nt is , TSH reference range varies by gestational period: First Trimester (weeks 9-12): 0.180-2.990 mIU/L Second Trimester: 0.110-3.980 mIU/L Third Trimester: 0.480-4.710 mIU/L Edgar Cardenas et al. A Practical Approach for the Verifications and Determination of Site- and Trimester-Specific Reference Intervals for Thyroid Function tests in . Thyroid, 2019:29:3:412-420. Martin E, et al. 2017 Guidelines of the [place] Thyroid Association for the Diagnosis and Management of Thyroid Disease during and the . Thyroid, 2017:27:3:315-389. Reference ranges were not locally established for this patient's age group. The normal values are based on the following source: Samara W, Ewa V. Reference Ranges for Adults and Children: Pre-analytical Considerations. [facility] Performed By: #### 09577-5, 2131-9, 3016-3, LIPNF #### [facility] CLIA [id number] [address] [place], [place] [address] [place] 25(OH)D3 SERPL-MCNC Collected: 05/22/2024 2:[address] atus: F Source: [facility] Order Comment: Specimen Type : BLOOD SPECIMEN Ordering Facility: [facility] Address: [address] [place] [address] TYPE CODE TESTS RESULT OUT OF RANGE REFERENCE UNITS LAB 1988-3([facility]) 25(OH)D3 SerPl-mCnc 7.3 Low 31.0-80.0 ng/mL Performed By: #### 1988- ## ## [facility] CLIA [id number] [address] [place] [address] [id number] [place], [place] [address] [place] CBC W AUTO DIFF BLD Collected: 05/22/2024 2:[address] atus: F Source: [facility] Order Comment: Specimen Type : BLOOD SPECIMEN Ordering Facility: [facility] Address: [address] [place] [address] TYPE CODE TESTS RESULT OUT OF RANGE REFERENCE UNITS LAB 6690-2([facility]) WBC # Bld Auto 10.79 3.70-11.00 k/uL LAB 789-8([facility]) RBC # Bld Auto 5.21 High 3.90-5.20 m/ uL LAB 718-7([facility]) Hgb Bld-mCnc 10.8 Low 11.5-15.5 g/dL LAB 4544-3([facility]) Hct VFr Bld Auto 37.9 36.0-46.0 % LAB 787-2([facility]) MCV RBC Auto 72.7 Low 80.0-100.0 fL LAB 785-6([facility]) MCH RBC Qn Auto 20.7 Low 26.0-34.0 p g LAB 786-4([facility]) MCHC RBC Auto-mCnc 28.5 Low 30.5-36.0 g/dL LAB 36419-4([facility]) RDW RBC-Rto 15.3 High 11.5-15.0 % LAB 777-3(INC) Platelet # Bld Auto 778 High 150-400 k/uL LAB 48405-6([facility]) PMV Bld Auto 9.8 9.0-12.7 fL LAB 770-8([facility]) Neutrophils/leuk NFr Bld Auto 66.9 % LAB 751-8(LOINC) Neutrophils # Bld Auto 7.22 1.45-7.50 k/uL LAB 736-9(LOINC) Lymphocytes/leuk NFr Bld Auto 23.2 % LAB 731-0(LOINC) Lymphocytes # Bld Auto 2.50 1.00-4.00 k/uL LAB 5905-5(LOINC) Monocytes/leuk NFr Bld Auto 7.3 % LAB 742-7(LOINC) Monocytes # Bld Auto 0.79 <0.87 k/uL LAB 713-8(LOINC) Eosinophil/leuk NFr Bld Auto 1.5 % LAB 711-2(LOINC) Eosinophil # Bld Auto 0.16 <0.46 k/uL LAB 706-2(LOINC) Basophils/leuk NFr Bld Auto 0.7 % LAB 704-7(LOINC) Basophils # Bld Auto 0.08 <0.11 k/uL LAB 19601-0(INC) Imm Granulocytes/nader k NFr Bld Auto 0.4 % LAB 13758-7(LOINC) Imm Granulocytes # Bld Auto 0.04 <0.10 k/uL LAB 01261-0(LOINC) nRBC/100 WBC Bld-Rto 0.0 /100 WBC LAB 771-6(INC) nRBC # Bld Auto <0.01 <0.01 k/u L LAB 69248-4(INC) Differential method Bld Auto Performed By: #### 33120-5 # ### [facility] CLIA [id number] [address] [place] [address] STATES OF [facility] PROGRESS Observed: 05/22/2024 1:00 PM Status: COMPLETED Source: [facility] HNO ID: [id number] Author: AMEE BREWER MD Service: ? Author Type: Physician Type: Progress Notes Filed: 05/22/2024 15:59 Note Text: Chief Complaint Patient presents with: Establish Care HPI Angelica Onofre is a 18 year old female who presents here today for establish care visit. Previous PCP Sabina Ansari with [facility] with last OV a couple years ago. Accompanied today by her mother. Have travelled back and forth to [place] and is planning on staying in [place] [employer]. Patient states that she has history of anxiety and depression and was treated with Prozac 2-3 years ago. Mother states that her symptoms started around age 6 when she was almost kidnapped from a park. Prozac did not work well for her. Has not been on any other medications. Denies thoughts of self harm or plan. No history of suicidal ideation, but used to cut years ago. Calls her sister if she is feeling down/depressed. Not seeing counseling at this time. No history of manic episodes and denies symptoms. 05/22/2024 1316 Last Filed Value FELICIA-7 - over the last 2 weeks... Feeling nervous, anxious, or on edge Nearly Everyday Nearly Everyday Not being able to stop or control worrying Nearly Everyday Nearly Everyday Worrying too much about different things Nearly Everyday Nearly Everyday Trouble relaxing Nearly Everyday Nearly Everyday Being so restless that it is hard to sit still Several days Several days Becoming easily annoyed or irritable Nearly Everyday Nearly Everyday Feeling afraid, as if something awful might happen Nearly Everyday Nearly Everyday How difficult to do work, care for home, get along with people Extremely difficult Extremely difficult FELICIA-2 Total Score 6 6 FELICIA-7 Total Score 19 19 FELICIA-7 Score 19 19 05/22/2024 1317 Last Filed Value PHQ-9 Little interest or pleasure in doing things Nearly every day Nearly every day Feeling down, depressed, or hopeless More than half the days More than half the days Trouble falling or staying asleep, or sleeping too much Nearly every day Nearly every day Feeling tired or having little energy Nearly every day Nearly every day Poor appetite or overeating More than half the days More than half the days Feeling bad about yourself - or that you are a failure or have let yourself or your family down More than half the days More than half the days Trouble concentrating on things, such as reading the newspaper or watching television Several days Several days Moving or speaking so slowly that other people could have noticed. Or the opposite - being so fidgety or restless that you have been moving around a lot more than usual Several days Several days Thoughts that you would be better off , or of hurting yourself in some way Several days Several days If you checked off any problems, how difficult have these problems made it for you to do your work, take care of things at home, or get along with other people? -- -- PHQ-9 score 18 18 PHQ-9 Score 18 18 PHQ-2 score 5 5 PHQ-2 Score 5 5 History of hypothyroidism and was on medication years ago. States they had her on it "until my numbers were right and then took me off". Requesting referral to ENT for wax build up on left ear with some hearing loss. Has been there for years. Treated with irrigation, peroxide, and other OTC solutions without improvement. Past medical history, appointments, medications, allergies reviewed. Previous Medical History PAST MEDICAL HISTORY Diagnosis Date Anxiety with depression Chronic lower back pain Deliberate self-cutting childhood Hypothyroidism Morbid obesity (HCC) Previous Surgical History History reviewed. No pertinent surgical history. Family History History reviewed. No pertinent family history. Patient Allergies ALLERGIES No Known Allergies Current Medications No current outpatient medications on file prior to visit. No current facility-administered medications on file prior to visit. Social History Review of Symptoms REVIEW OF SYSTEMS GENERAL: No weight loss, malaise or fevers HEENT: Negative for frequent or significant headaches, No changes in hearing or vision, no nose bleeds or other nasal problems NECK: Negative for lumps, goiter, pain and significant neck swelling RESPIRATORY: Negative for cough, hemoptysis, wheezing, COPD, dyspnea or shortness of breath CARDIOVASCULAR: Negative for chest pain, leg swelling, hypertension, CHF or palpitations GI: No nausea, vomiting, or diarrhea : No history of dysuria, frequency or incontinence HELP DESK SPECIALIST: Negative for abnormal vaginal bleeding, abnormal vaginal discharge MUSCULOSKELETAL: Negative for joint pain or swelling, back pain or muscle pain SKIN: Negative for lesions, rash, and itching PSYCH: See HPI HEMATOLOGY/LYMPHOLOGY: Negative for prolonged bleeding, bruising easily or swollen nodes ENDOCRINE: Negative for cold or heat intolerance, polyuria, polydipsia and goiter NEURO: No history of headaches, syncope, paralysis, seizures or tremors EXAM: BP 128/84 Pulse 88 Resp 20 Ht 159.7 cm (5' 2.87") Wt 123 kg (271 lb 3.2 oz) BMI 48.23 kg/m? General Appearance: Well appearing, alert, in no acute distress, well-hydrated, well nourished. Skin: Skin color, texture, turgor normal, no suspicious rashes or lesions. Head: Normocephalic, no masses, lesions, tenderness or abnormalities. Eyes: Anicteric sclera. Pupils are equally round and reactive to light. Extraocular movements are intact. . Ears: Positive findings: cerumen bilaterally, amount Large. Nose/Sinuses: Nares normal, septum midline, mucosa normal, no drainage or sinus tenderness. Oropharynx: Lips, mucosa,teeth and gums normal, oropharynx normal. Geographic tongue. Neck: Supple, no adenopathy; thyroid symmetric, normal size, no bruits. Lungs: Lungs clear to auscultation. No wheezing, rhonchi, rales.. Heart: RRR without murmur, gallop, or rubs. No ectopy. Abdomen: Normal abdominal exam, Abdomen soft, non-tender. Bowel sounds normal. No masses, organomegaly. Extremities: No deformities, edema, skin discoloration, clubbing or cyanosis. Good capillary refill. Peripheral Pulses: Normal. Neurologic: Gait normal. Reflexes normal and symmetric. Sensation grossly intact.. Lymph Nodes: No cervical lymphadenopathy and No supraclavicular lymphadenopathy. Health Maintenance List GC (Gonorrhea) Screening (18-24) Never done Depression Screening Never done Anxiety Screening Never done Hepatitis C Screening Never done HIV Screening Never done Chlamydia Screening (18-24) Never done Influenza Vaccine(1) due on 04/22/2024 Covid-19 Vaccine(3 - 2023- season) due on 04/22/2024 DTaP,Tdap,Td Vaccine(8 - Td or Tdap) due on 04/27/2028 Hepatitis B Vaccine Completed HPV Vaccine Completed Meningococcal Conjugate Vaccine Completed Meningococcal B Vaccine: Consider Based On Risk Completed ASSESSMENT/PLAN: 1. Encounter for medical examination to establish care - ICD9: V70.9, ICD10: Z00.00 (primary diagnosis) - Counseled on healthy diet and regular exercise - Patient counseled on and acknowledged vaccine benefits/risks/side effects; VIS provided: COVID-19 and Influenza - Follow up for annual exam in one year - COMPLETE BLOOD COUNT AND DIFFERENTIAL - LIPID PANEL, NONFASTING 2. Anxiety with depression - ICD9: 300.4, ICD10: F41.8 Uncontrolled anxiety and depression symptoms. Start SSRI. Given information for counseling. F/u in 1 month. Contracted for safety. Obtain labs as ordered. - SERTRALINE 50 MG TABLET - COMPREHENSIVE METABOLIC PANEL - THYROID STIMULATING HORMONE - VITAMIN D 25 HYDROXY - VITAMIN B12 3. Hypothyroidism, unspecified type - ICD9: 244.9, ICD10: E03.9 Reported history of hypothyroidism. Check TSH. Will call with results. 4. Morbid obesity with BMI of 45.0-49.9, adult (HCC) - ICD9: 278.01, V85.42, ICD10: E66.01, Z68.42 Newly diagnosed - Behavioral intervention - HEMOGLOBIN A1C 5. Impacted cerumen of left ear - ICD9: 380.4, ICD10: H61.22 Requesting referral to ENT after failing outpatient treatment. - CONSULT TO ENT 6. Impacted cerumen of right ear - ICD9: 380.4, ICD10: H61.21 Requesting referral to ENT after failing outpatient treatment. 7. Encounter for immunization - ICD9: V03.89, ICD10: Z23 - INFLUENZA VACCINE, AGE 6MO-64YR, TRIVALENT (AFLURIA, FLULAVAL, FLUVIRIN, FLUZONE) - Hexaformer-Iencuentra COVID-19 VACCINE AGE 12+ YR (COMIRNATY) Amee Brewer MD CNOV Observed: 05/22/2024 1:00 PM Status: COMPLETED Source: [facility] Office Visit (FAMPWS) JEMAL ONOFRE ([id number]) 3 F Date Time Provider Department 05/22/24 1:00 PM AMEE BREWER During your visit today, we recorded the following information about you: Pulse Respiration Blood pressure Weight 88/minute 20/minute 128/84 123 kg Height 1.597 m Amee Brewer MD 05/22/2024 3:59 PM Signed Chief Complaint Patient presents with: Establish Care HPI Angelica Farah Jemima is a 18 year old female who presents here today for establish care visit. Previous PCP Sabina Ansari with [facility] with last OV a couple years ago. Accompanied today by her mother. Have travelled back and forth to [place] and is planning on staying in [place] [facility]. Patient states that she has history of anxiety and depression and was treated with Prozac 2-3 years ago. Mother states that her symptoms started around age 6 when she was almost kidnapped from a park. Prozac did not work well for her. Has not been on any other medications. Denies thoughts of self harm or plan. No history of suicidal ideation, but used to cut years ago. Calls her sister if she is feeling down/depressed. Not seeing counseling at this time. No history of manic episodes and denies symptoms. 05/22/2024 1316 Last Filed Value FELICIA-7 - over the last 2 weeks... Feeling nervous, anxious, or on edge Nearly Everyday Nearly Everyday Not being able to stop or control worrying Nearly Everyday Nearly Everyday Worrying too much about different things Nearly Everyday Nearly Everyday Trouble relaxing Nearly Everyday Nearly Everyday Being so restless that it is hard to sit still Several days Several days Becoming easily annoyed or irritable Nearly Everyday Nearly Everyday Feeling afraid, as if something awful might happen Nearly Everyday Nearly Everyday How difficult to do work, care for home, get along with people Extremely difficult Extremely difficult FELICIA-2 Total Score 6 6 FELICIA-7 Total Score 19 19 FELICIA-7 Score 19 19 05/22/2024 1317 Last Filed Value PHQ-9 Little interest or pleasure in doing things Nearly every day Nearly every day Feeling down, depressed, or hopeless More than half the days More than half the days Trouble falling or staying asleep, or sleeping too much Nearly every day Nearly every day Feeling tired or having little energy Nearly every day Nearly every day Poor appetite or overeating More than half the days More than half the days Feeling bad about yourself - or that you are a failure or have let yourself or your family down More than half the days More than half the days Trouble concentrating on things, such as reading the newspaper or watching television Several days Several days Moving or speaking so slowly that other people could have noticed. Or the opposite - being so fidgety or restless that you have been moving around a lot more than usual Several days Several days Thoughts that you would be better off , or of hurting yourself in some way Several days Several days If you checked off any problems, how difficult have these problems made it for you to do your work, take care of things at home, or get along with other people? -- -- PHQ-9 score 18 18 PHQ-9 Score 18 18 PHQ-2 score 5 5 PHQ-2 Score 5 5 History of hypothyroidism and was on medication years ago. States they had her on it "until my numbers were right and then took me off". Requesting referral to ENT for wax build up on left ear with some hearing loss. Has been there for years. Treated with irrigation, peroxide, and other OTC solutions without improvement. Past medical history, appointments, medications, allergies reviewed. Previous Medical History PAST MEDICAL HISTORY Diagnosis Date Anxiety with depression Chronic lower back pain Deliberate self-cutting childhood Hypothyroidism Morbid obesity (HCC) Previous Surgical History History reviewed. No pertinent surgical history. Family History History reviewed. No pertinent family history. Patient Allergies ALLERGIES No Known Allergies Current Medications No current outpatient medications on file prior to visit. No current facility-administered medications on file prior to visit. Social History Review of Symptoms REVIEW OF SYSTEMS GENERAL: No weight loss, malaise or fevers HEENT: Negative for frequent or significant headaches, No changes in hearing or vision, no nose bleeds or other nasal problems NECK: Negative for lumps, goiter, pain and significant neck swelling RESPIRATORY: Negative for cough, hemoptysis, wheezing, COPD, dyspnea or shortness of breath CARDIOVASCULAR: Negative for chest pain, leg swelling, hypertension, CHF or palpitations GI: No nausea, vomiting, or diarrhea : No history of dysuria, frequency or incontinence HELP DESK SPECIALIST: Negative for abnormal vaginal bleeding, abnormal vaginal discharge MUSCULOSKELETAL: Negative for joint pain or swelling, back pain or muscle pain SKIN: Negative for lesions, rash, and itching PSYCH: See HPI HEMATOLOGY/LYMPHOLOGY: Negative for prolonged bleeding, bruising easily or swollen nodes ENDOCRINE: Negative for cold or heat intolerance, polyuria, polydipsia and goiter NEURO: No history of headaches, syncope, paralysis, seizures or tremors EXAM: BP 128/84 Pulse 88 Resp 20 Ht 159.7 cm (5' 2.87") Wt 123 kg (271 lb 3.2 oz) BMI 48.23 kg/m? General Appearance: Well appearing, alert, in no acute distress, well-hydrated, well nourished. Skin: Skin color, texture, turgor normal, no suspicious rashes or lesions. Head: Normocephalic, no masses, lesions, tenderness or abnormalities. Eyes: Anicteric sclera. Pupils are equally round and reactive to light. Extraocular movements are intact. . Ears: Positive findings: cerumen bilaterally, amount Large. Nose/Sinuses: Nares normal, septum midline, mucosa normal, no drainage or sinus tenderness. Oropharynx: Lips, mucosa,teeth and gums normal, oropharynx normal. Geographic tongue. Neck: Supple, no adenopathy; thyroid symmetric, normal size, no bruits. Lungs: Lungs clear to auscultation. No wheezing, rhonchi, rales.. Heart: RRR without murmur, gallop, or rubs. No ectopy. Abdomen: Normal abdominal exam, Abdomen soft, non-tender. Bowel sounds normal. No masses, organomegaly. Extremities: No deformities, edema, skin discoloration, clubbing or cyanosis. Good capillary refill. Peripheral Pulses: Normal. Neurologic: Gait normal. Reflexes normal and symmetric. Sensation grossly intact.. Lymph Nodes: No cervical lymphadenopathy and No supraclavicular lymphadenopathy. Health Maintenance List GC (Gonorrhea) Screening (18-24) Never done Depression Screening Never done Anxiety Screening Never done Hepatitis C Screening Never done HIV Screening Never done Chlamydia Screening (18-24) Never done Influenza Vaccine(1) due on 04/22/2024 Covid-19 Vaccine(2023- season) due on 04/22/2024 DTaP,Tdap,Td Vaccine(8 - Td or Tdap) due on 04/27/2028 Hepatitis B Vaccine Completed HPV Vaccine Completed Meningococcal Conjugate Vaccine Completed Meningococcal B Vaccine: Consider Based On Risk Completed ASSESSMENT/PLAN: 1. Encounter for medical examination to establish care - ICD9: V70.9, ICD10: Z00.00 (primary diagnosis) - Counseled on healthy diet and regular exercise - Patient counseled on and acknowledged vaccine benefits/risks/side effects; VIS provided: COVID-19 and Influenza - Follow up for annual exam in one year - COMPLETE BLOOD COUNT AND DIFFERENTIAL - LIPID PANEL, NONFASTING 2. Anxiety with depression - ICD9: 300.4, ICD10: F41.8 Uncontrolled anxiety and depression symptoms. Start SSRI. Given information for counseling. F/u in 1 month. Contracted for safety. Obtain labs as ordered. - SERTRALINE 50 MG TABLET - COMPREHENSIVE METABOLIC PANEL - THYROID STIMULATING HORMONE - VITAMIN D 25 HYDROXY - VITAMIN B12 3. Hypothyroidism, unspecified type - ICD9: 244.9, ICD10: E03.9 Reported history of hypothyroidism. Check TSH. Will call with results. 4. Morbid obesity with BMI of 45.0-49.9, adult (HCC) - ICD9: 278.01, V85.42, ICD10: E66.01, Z68.42 Newly diagnosed - Behavioral intervention - HEMOGLOBIN A1C 5. Impacted cerumen of left ear - ICD9: 380.4, ICD10: H61.22 Requesting referral to ENT after failing outpatient treatment. - CONSULT TO ENT 6. Impacted cerumen of right ear - ICD9: 380.4, ICD10: H61.21 Requesting referral to ENT after failing outpatient treatment. 7. Encounter for immunization - ICD9: V03.89, ICD10: Z23 - INFLUENZA VACCINE, AGE 6MO-64YR, TRIVALENT (AFLURIA, FLULAVAL, FLUVIRIN, FLUZONE) - Hexaformer-Iencuentra COVID-19 VACCINE AGE 12+ YR (COMIRNATY) MD Daniella Dowd Christopher B, MD 05/22/2024 1:21 PM Signed Rochelle PCSA - Insurance Therapy/Counseling [facility] [address] [place] [address] [address] [employer] [address] [address] [facility] [address] [place] [address] [address] [address] [place] [address] [employer] [address] [place], [place] [address] [employer] [address] [place], [place] [id number] [facility] [place] [address] [place] [address] Referring Provider: SELF [200] Allergies As of Date: 05/22/2024 (No Known Allergies) Date Reviewed: 04/02/2024 Reviewed by: Tayla Hunt MA - Fully Assessed Reason for Visit: Establish Care [42] Primary Visit Diagnosis:Encounter for medical examination to establish care [Z00.00] Other Visit Diagnoses:Anxiety with depression [F41.8] Hypothyroidism, unspecified type [E03.9] Morbid obesity with BMI of 45.0-49.9, adult (HCC) [E66.01, Z68.42] Impacted cerumen of left ear [H61.22] Impacted cerumen of right ear [H61.21] Encounter for immunization [Z23] Order(s):sertraline (ZOLOFT) 50 mg tabletTake 1 tablet by mouth once daily.Disp: 30 tabletRfl: 2 COMPLETE BLOOD COUNT AND DIFFERENTIAL [SQCBCDIF] Order #: [id number] FUTURE COMPREHENSIVE METABOLIC PANEL [SQCMP] Order #: [id number] FUTURE THYROID STIMULATING HORMONE [SQTSH] Order #: [id number] FUTURE VITAMIN D 25 HYDROXY [SQVITD] Order #: [id number] FUTURE VITAMIN B12 [SQB12] Order #: [id number] FUTURE HEMOGLOBIN A1C [EZJGY5I] Order #: [id number] FUTURE LIPID PANEL, NONFASTING [SQLIPNF] Order #: [id number] FUTURE INFLUENZA VACCINE, AGE 6MO-64YR, TRIVALENT (AFLURIA, FLULAVAL, FLUVIRIN, FLUZONE) [[id number]] Order #: [id number] [employer] COVID-19 VACCINE AGE 12+ YR (COMIRNATY) [[id number]] Order #: [id number] nystatin (MYCOSTATIN) 100,000 unit/mL suspensionTake 5 mL by mouth four times daily for 7 days. 1tsp swish in mouth for several minutes, then swallow (or expectorate) 4 times daily until gone.Disp: 200 mLRfl: 0 CONSULT TO ENT [9008] Order #: [id number]: 1 FUTURE Prescriptions as of 05/22/2024 - sertraline (ZOLOFT) 50 mg tablet Take 1 tablet by mouth once daily. - nystatin (MYCOSTATIN) 100,000 unit/mL suspension Take 5 mL by mouth four times daily for 7 days. 1tsp swish in mouth for several minutes, then swallow (or expectorate) 4 times daily until gone. Problem List As Of Date 05/22/2024 Noted Resolved Anxiety with depression [F41.8] Hypothyroidism [E03.9] Cerumen impaction [H61.20] Other instructions from your clinician: Armen PCSA - Insurance Therapy/Counseling [facility] [address] [place] [address] [facility] [address] [place] [address] [employer] [address] [address] [facility] [address] [place] [address] [facility] [address] [place] [address] [employer] [address] [place] [address] [employer] [address] [facility] [place] [address] [facility] [place] [address] [place] [address] Prescriptions ordered this encounter Disp Refills Start End SERTRALINE 50 MG TABLET 30 t* 2 05/22/2024 Route: ORAL Sig: Take 1 tablet by mouth once daily. NYSTATIN 100,000 UNIT/ML ORAL SUSPEN* 200 * 0 05/22/2024 05/29/2024 Route: ORAL Sig: Take 5 mL by mouth four times daily for 7 days. 1tsp swish in mouth for several minutes, then swallow (or expectorate) 4 times daily until gone. Disposition: Return in about 4 weeks (around 06/19/2024) for f/u anxiety/depression. Follow-up and Disposition History for Encounter Date Provider Department Center 05/22/2024 [id number]-KYAZICTASHLEE BREWER [facility] Encounter Status:Closed by AMEE BREWER on 05/22/24 ALLERGIES DATE TYPE / CODE NAME / CODE REACTION SEVERITY SOURCE Drug Class/[id number](SNO MED CT) NO KNOWN ALLERGIES [facility] ENCOUNTERS ADMIT/DISCHARGE ACCOUNT NUMBER ADMITTING ENCOUNTER CLASS LOC ATION SOURCE 12/24/2024/ 5 [id number] [facility] [id number] [facility] 4 [id number] [facility]24/ 4 [id number] Ambulatory [facility] PAYERS ENCOUNTER GUARANTOR PAYER SUBSCRIBER SOURCE 12/24/2024 Primary Insuranc e[place] [place]: [id number] Date:[id number] Name:dAy ANGELICA SMITHB: [id number] [address] 06/05/2024 Primary Insuranc e:[employer] [place]: [id number] Date:[id number] Name:Ady ANGELICA LISETHAmish ONOFREDOB: [id number] [place], [place] [address] [place] [address] 05/22/2024 Primary Insuranc e:[employer] [place] [place] Number: [id number] Date:9316-86-25Tjme Name:Ady JEMAL ONOFREDOB: [id number] [place], [place] [address] [place] [address] 05/22/2024 Primary Insuranc e:[employer] [place] Number: [id number] Date:9188-60-42Dfdo Name:Ady ONOFREDOB: [id number] [place], [place] [address] [place] [address]
[2025-05-19 22:09] VITALS: BP 136/96; PULSE 92; RESP 14; TEMP 37.1; O2SAT 98; BMI 49.4
--- NOTE | 2025-05-19 22:18 | EDS_ITS ---
HPI History of Present Illness Chief Complaint: Bite Narrative Narrative: 19-year-old female who denies significant past medical history, left hand dominant, presents with injury to her left index finger that she sustained just prior to arrival. 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 She sustained a cat bite to the tip of her left index finger. She denies other injury. She is unsure of her last tetanus immunization. She denies other injuries. She states that her puncture wounds on her finger would not stop bleeding. [facility] Medical History Depression Hypothyroid Home Medications Medication Instructions Recorded Last Taken Type albuterol sulfate 90 mcg/actuation 1 - 2 puff inhalati on Q4H PRN PRN 08/30/22 Unknown Rx aerosol inhaler (Ventolin HFA) Wheezing ##1 amoxicillin 875 mg-potassium 875 mg PO Q12H 7 days #14 TABLETS 05/19/25 Unknown Rx clavulanate 125 mg tablet Allergy/AdvReac Type Severity Reaction Status Date / Time petrolatum,white (From Allergy Mild Rash Verified 05/19/25 22:09 Vaseline) Social History housing: house Smoking Status: Never smoker ROS ROS ED ROS Narrative Review of systems positive for cat bite to left index fingertip. Unknown last tetanus immunization. No other injuries. Happened just prior to arrival by 10 to 15 minutes. Positive bleeding. EXAM Physical Exam Narrative Exam Narrative: Afebrile. Vital signs noted. Nontoxic-appearing. Inspection of the index finger of the left hand does show 2 puncture wounds on the medial and lateral aspects with minimal bleeding. Good capillary refill. Full range of motion of left digit. Palpable radial pulse. Const Vital Signs: 05/19/25 22:09 Temperature 98.7 F Temperature Source Oral Pulse Rate 92 Respiratory Rate 14 Blood Pressure 136/96 H Blood Pressure Mean 109 Pulse Ox 98 Oxygen Delivery Method Room Air MDM MDM MDM Narrative Medical decision making narrative: I do not feel differential diagnosis is applicable. There are no signs of compartment syndrome and the injury just happened. I have low suspicion for rabies. I do not feel she needs immunization for this. I we will obtain x-rays of the left index finger to look for foreign body or fracture from the cat bite. She was given a prophylactic dose of Augmentin 875 mg here in the emergency department and prescription written for the next 7 days. Additionally, she was administered a Boostrix immunization for tetanus. Her left index finger was soaked. I do not feel the need repair so as not to trap any bacteria as they are more puncture wounds. Patient declines any analgesics orally here in the emergency department. My individual interpretation of the x-ray of the left second digit there is no evidence of radiopaque foreign body, no fracture or dislocation. At this point in time, I feel she can be discharged to follow-up with her primary care provider for wound check in the next 2 days. Return instructions to the emergency department were reviewed. I discussed with the patient and her mother the low incidence of transmission of rabies from domesticated cat. Disposition is discharged home in stable condition. History & Record Review Discussion w/independent historian: Patient Discharge Plan Triage Chief Complaint: Bite ED Provider: Devendra De La Cruz Dx/Rx/DC Orders Clinical Impression: Open wound of left index finger due to cat bite, Cat bite of finger, Need for Tdap vaccination Instructions: ED Animal Bite (General), ED Cat Bite Prescriptions: New amoxicillin-pot clavulanate 875-125 mg tablet 875 mg PO Q12H 7 Days Qty: 14 0RF No Action albuterol sulfate [Ventolin HFA] 90 mcg/actuation HFA aerosol inhaler 1 - 2 puff inhalation Q4H PRN PRN (Reason: Wheezing) Qty: 1 0RF Primary Care Provider: Phan Brewer Referrals: Phan Brewer MD [Primary Care Provider, Family Practice] - 2 Days for wound check Activity Restrictions/Additional Instructions: Antibiotics for prophylaxis as directed. Return with increased redness of fingertip, increased swelling, fever, red streak up your arm, new or worsening symptoms. Have a wound check performed by your primary care provider in the next 2 days. Tylenol and/or ibuprofen as needed for pain. Print Language: Croatian Disposition Disposition: Home, Self Care
--- NOTE | 2025-05-19 22:25 | RAD_ITS ---
PROCEDURE: LEFT FINGER(S) MIN 2 VIEWS 05/19/2025 REASON FOR EXAM: TRAUMA, CAT BITE TECHNIQUE: Procedure Code: RADFIN Modality: DX Procedure: FINGER(S) MIN 2 VIEWS Laterality: Left COMPARISON: None. FINDINGS: No acute fracture or dislocation. Alignment is anatomic. Preserved joint spaces. No aggressive osseous lesion. No marked soft tissue swelling or radiopaque foreign body. RAD/Finger(s) Min 2 Views IMPRESSION: No acute fracture or dislocation. No radiopaque foreign body. Reading Location: [id number]
[2025-05-19 23:06] VITALS: BP 130/75; PULSE 92; RESP 14; TEMP 37.1; O2SAT 98
== END 2025-05-19 23:08 | disposition home or self-care (01) ==
PROVIDERS: Emergency Provider Emergency Medicine; PCP Family Medicine; Visit Provider Emergency Medicine
DX: S61.251A Open bite of left index finger without damage to nail, initial encounter (principal); Z23 Encounter for immunization; W55.01XA Bitten by cat, initial encounter; Y99.0 Civilian activity done for income or pay
CPT/HCPCS: 73140; 90715; 99282